=== PATIENT | female | born 1980 | race Caucasian/White ===

== ENCOUNTER 2021-10-04 00:46 | Emergency (ER) | payer OTHER, SELFPAY ==
--- NOTE | 2021-10-04 00:50 | DI.RAD.S_ITS ---
PROCEDURE: XR KNEE RT 1TO2V INDICATIONS: midline and medial joint line pain TECHNIQUE: 2 views of the knee were acquired. COMPARISON: None. FINDINGS: Bones: No no displaced or depressed fractures. No dislocations. No suspicious bony lesions. Soft tissues: No joint effusion. There is prepatellar soft tissue swelling with a suspected laceration. No suspicious soft tissue calcifications. IMPRESSION: 1. No displaced or depressed fracture. 2. Prepatellar soft tissue swelling with suspected laceration. Dictated by: Marino Mauricio M.D. on 10/04/2021 at 1:17 Approved by: Marino Mauricio M.D. on 10/04/2021 at 1:18
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
[2021-10-04 00:53] VITALS: BP 156/89; PULSE 78; RESP 20; TEMP 36.4; O2SAT 97; BMI 22.9
--- NOTE | 2021-10-04 01:00 | PC.NURSE ---
pain mostly in right knee no obvious deformity but unable to bear weight
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
[2021-10-04] MEDS: ONDANSETRON 4 MG ODT PREPACK 1 BOTTLE MISC (02:18)
[2021-10-04] MEDS: HYDROCODONE/ACET 5/325 PREPACK 1 BOTTLE MISC (02:18)
== END 2021-10-04 07:01 | disposition home or self-care (01) ==
PROVIDERS: Emergency Provider Emergency Medicine; PCP Nurse Practitioner Family
DX: S82.001A Unspecified fracture of right patella, initial encounter for closed fracture (principal); W05.1XXA Fall from non-moving nonmotorized scooter, initial encounter
CPT/HCPCS: 73560; 73700; 99282; 99284